=== PATIENT | male | born 1960 | race Caucasian/White ===

== ENCOUNTER 2018-11-11 11:19 | Emergency (ER) | payer MEDICARE, OTHER ==
--- NOTE | 2018-11-11 12:32 | REP ---
Chest one-view HISTORY: Cough Comparison: None Linear densities are present in the left lower lobe consistent with atelectasis or scar. The right lung is clear The heart is normal in size. The pulmonary vasculature is normal in appearance. Impression: Left lower lobe atelectasis or scar. Electronically Signed by Bassam Mckeon MD 11/11/2018 12:24 P
[2018-11-11 12:47] LABS: BASO # 0.1 10^3/uL (0.0-0.2); BASO % 1.1 % (0.0-1.0); EOS # 0.2 10^3/uL (0.0-0.50); EOS % 2.3 % (0.0-3.0); HEMATOCRIT 39.6 % (42.0-52.0); HEMOGLOBIN 13.4 g/dl (13.5-17.5); LYMPH # 1.7 10^3/uL (1.5-4.5); LYMPH % 20.9 % (24.0-44.0); MEAN CORPUSCULAR HEMOGLOBIN 30.9 pg (27.0-33.0); MEAN CORPUSCULAR HGB CONC 33.8 g/dl (32.0-36.5); MEAN CORPUSCULAR VOLUME 91.5 fl (80.0-96.0); MONO # 0.5 10^3/uL (0.0-0.8); MONO % 5.4 % (0.0-5.0); NEUTROPHILS # 5.8 10^3/uL (1.8-7.7); NEUTROPHILS % 69.8 % (36.0-66.0); PLATELET COUNT, AUTOMATED 288 10^3/uL (150-450); RED BLOOD COUNT 4.33 10^6/uL (4.30-6.10); VENOUS BASE EXCESS 0.5 (-2.0-2.0); VENOUS HCO3 25.7 MEQ/L (23.0-27.0); VENOUS O2 SATURATION 91.4 % (60.0-80.0); VENOUS PARTIAL PRESSURE CO2 43.4 mmHg (38.0-50.0); VENOUS PARTIAL PRESSURE O2 62.7 mmHg (30.0-50.0); VENOUS STANDARD HCO3 24.8 MEQ/L; WHITE BLOOD COUNT 8.3 10^3/uL (4.0-10.0)
[2018-11-11 12:58] LABS: INR 0.88
[2018-11-11 13:00] LABS: D-DIMER QUANT 482.72 ng/ml (<500)
[2018-11-11 13:20] LABS: ALBUMIN 3.6 GM/DL (3.2-5.2); ALT/SGPT 19 U/L (12-78); BILIRUBIN,DIRECT < 0.1 MG/DL (0.0-0.2); BILIRUBIN,TOTAL 0.2 MG/DL (0.2-1.0); BLOOD UREA NITROGEN 27 MG/DL (7-18); CALCIUM LEVEL 8.9 MG/DL (8.5-10.1); CARBON DIOXIDE LEVEL 26 MEQ/L (21-32); CHLORIDE LEVEL 107 MEQ/L (98-107); CPK CREATINE PHOSPHOKINASE 170 U/L (39-308); CREATININE FOR GFR 0.78 MG/DL (0.70-1.30); GLOMERULAR FILTRATION RATE > 60.0 (>56); GLUCOSE, FASTING 96 MG/DL (70-100); MB/CK RELATIVE INDEX 3.24 (< OR =4); NT-PRO BNP 37 PG/ML (<125); POTASSIUM SERUM 4.2 MEQ/L (3.5-5.1); SODIUM LEVEL 141 MEQ/L (136-145); TOTAL PROTEIN 6.4 GM/DL (6.4-8.2); TROPONIN I < 0.02 NG/ML (< 0.10)
[2018-11-11] MEDS ORDERED: ALBU17IN2 INH (14:05)
[2018-11-11] MEDS ORDERED: PRED20TA PO (14:05)
[2018-11-11] MEDS ORDERED: IPRATROPIUM 0.5MG/ALBUTEROL 2.5MG INH SOL UD 3ML (DUONEB)(J7620) NEB ONE (14:15)
[2018-11-11] MEDS ORDERED: dexameTHASONE 20 MG/5 ML VIAL (J1100) IV ONE (14:15)
[2018-11-11 14:31] VITALS: BP 124/79
--- NOTE | 2018-11-12 08:51 | ECGEPIP ---
Stationary ECG Study [facility] - ED Test Date: 2018-11-11 Pat Name: LUCERO BILLS Department: Room: - Gender: M Carrier Blower: MARIS : 1960 Requested By: Wilian Kumar Order Number: [id number] Reading MD: Pari Mccall Measurements Intervals [place] Rate: 64 P: 59 TX: 139 QRS: 49 QRSD: 91 T: 56 QT: 413 QTc: 426 Interpretive Statements SINUS RHYTHM NO PRIOR FOR COMPARISON Electronically Signed On 11-12-2018 8:50:34 EST by Pari Mccall
== END 2018-11-11 15:01 | disposition home or self-care (01) ==
LOC: M ED 11:19
DX: J44.1 Chronic obstructive pulmonary disease with (acute) exacerbation (principal); F17.210 Nicotine dependence, cigarettes, uncomplicated
CPT/HCPCS: 71045; 80048; 80076; 82550; 82553; 82803; 83880; 84443; 84484; 85025; 85379; 85610; 87040; 87486; 87581; 87633; 87798; 93005; 93041; 94640; 96374; 99285; J1100

== ENCOUNTER 2020-02-18 19:30 | Emergency (ER) | payer MEDICARE, OTHER ==
[~2020-02-18] VITALS: Ht 162.6 cm; Wt 68.2 kg
[~2020-02-18 19:30] MED LIST: PRED20TA PO; PROV108A INH
[2020-02-18] MEDS ORDERED: traMADol 50 MG TAB PO ONE (20:30)
--- NOTE | 2020-02-18 20:47 | REPVR ---
PROCEDURE INFORMATION: Exam: XR Left Hip with Pelvis when Performed Exam date and time: 02/18/2020 8:07 PM Age: 59 years old Clinical indication: Hip pain; Left hip; Additional info: Left hip pain for 3 weeks, doesn't know of any injury. TECHNIQUE: Imaging protocol: XR Left hip with pelvis when performed. Views: 2 or 3 views. COMPARISON: No relevant prior studies available. FINDINGS: Bones/joints: Advanced osteoarthritic changes of the left hip with severe degenerative joint space narrowing and subchondral sclerosis. Partially visualized chronic healed mid left femoral diaphysis fracture. No acute fracture or dislocation. Soft tissues: Unremarkable. IMPRESSION: 1. No acute fracture or dislocation. 2. Severe osteoarthritic changes of the left hip. Electronically signed by: Sidney Londono On 02/18/2020 20:47:27 PM
--- NOTE | 2020-02-18 20:48 | REPVR ---
PROCEDURE INFORMATION: Exam: XR Left Femur Exam date and time: 02/18/2020 8:40 PM Age: 59 years old Clinical indication: Pain; Hip; Left; Additional info: Left hip/femur pain TECHNIQUE: Imaging protocol: XR Left femur. Views: 2 views. COMPARISON: No relevant prior studies available. FINDINGS: Bones/joints: Chronic healed mid left femoral diaphysis fracture. No acute fracture or dislocation. Osteoarthritic changes of the left knee, predominantly along the medial joint space. Soft tissues: Unremarkable. IMPRESSION: 1. No acute findings. 2. Chronic findings, as above. Electronically signed by: Sidney Londono On 02/18/2020 20:48:27 PM
[2020-02-18 20:59] LABS: BASO # 0.1 10^3/uL (0.0-0.2); BASO % 1.3 % (0.0-1.0); EOS # 0.1 10^3/uL (0.0-0.5); HEMATOCRIT 44.2 % (42.0-52.0); LYMPH # 1.8 10^3/uL (1.5-5.0); LYMPH % 26.2 % (24.0-44.0); MEAN CORPUSCULAR HEMOGLOBIN 30.4 pg (27.0-33.0); MEAN CORPUSCULAR HGB CONC 33.9 g/dl (32.0-36.5); MEAN CORPUSCULAR VOLUME 89.5 fl (80.0-96.0); MONO # 0.5 10^3/uL (0.0-0.8); MONO % 7.3 % (0.0-5.0); NEUTROPHILS # 4.4 10^3/uL (1.5-8.5); NEUTROPHILS % 63.8 % (36.0-66.0); PLATELET COUNT, AUTOMATED 274 10^3/uL (150-450); RED BLOOD COUNT 4.94 10^6/uL (4.30-6.10)
[2020-02-18 21:26] LABS: ALBUMIN 3.6 GM/DL (3.2-5.2); ALT/SGPT 18 U/L (12-78); BILIRUBIN,TOTAL 0.5 MG/DL (0.2-1.0); BLOOD UREA NITROGEN 22 MG/DL (7-18); CALCIUM LEVEL 8.9 MG/DL (8.8-10.2); CARBON DIOXIDE LEVEL 28 MEQ/L (21-32); CHLORIDE LEVEL 103 MEQ/L (98-107); CREATININE FOR GFR 0.98 MG/DL (0.70-1.30); GLOMERULAR FILTRATION RATE > 60.0 (>49); GLUCOSE, FASTING 72 MG/DL (70-100); POTASSIUM SERUM 3.9 MEQ/L (3.5-5.1); SODIUM LEVEL 138 MEQ/L (136-145); TOTAL PROTEIN 6.9 GM/DL (6.4-8.2)
[2020-02-18 21:35] VITALS: BP 146/78
[2020-02-18] MEDS ORDERED: TRAM50TA2 PO (21:38)
[2020-02-18] MEDS ORDERED: CLOT1CRE56 TOP (21:38)
== END 2020-02-18 22:15 | disposition home or self-care (01) ==
LOC: M ED 19:30
DX: M16.12 Unilateral primary osteoarthritis, left hip (principal); B35.4 Tinea corporis; Z87.81 Personal history of (healed) traumatic fracture; J44.9 Chronic obstructive pulmonary disease, unspecified; R21 Rash and other nonspecific skin eruption

== ENCOUNTER → 2021-04-17 | Outpatient (CLI) | payer OTHER ==
[~2021-04-17] MED LIST changes: +CLOT1CRE56 TOP; +ISOVUE-300 61% 50ML VIAL As Ordered ONE; +LIDOCAINE 1% MDV 20ML VIAL As Ordered ONE; +TRAM50TA2 PO; +TRIAMCINOLONE ACETONIDE SUSP 40 MG/ML VIAL (J3301) As Ordered ONE
--- NOTE | 2021-04-17 12:50 | REP ---
INDICATION: OSTEOARTHRITIS LEFT HIP. COMPARISON: None TECHNIQUE: The procedure was performed by ARIEL Tong, under the direct supervision of Dr. Huff. The benefits and risks of the procedure were explained to the patient, and an informed consent was obtained. Directly prior to the start of the procedure, a formal time-out was completed in the procedure room. The left femoral neck joint space was localized using fluoroscopic guidance. The skin was prepped and draped in a sterile fashion. Approximately 5 mL of 1% Lidocaine 10 mg/ml was used as a local anesthetic. Using fluoroscopic guidance, a #22 gauge spinal needle was inserted and advanced into the left joint space, given the patient's inability to lay flat and extend his leg flat this proved to be rather difficult. Approximately 1 mL of Isovue 300 was injected to verify placement. Six mL of a solution containing 5 mL 1% lidocaine 10 mg/ml and 1 mL Kenalog 40 milligrams/milliliter was injected into the joint space. The needle was removed and hemostasis was achieved. FINDINGS: The patient tolerated the procedure well and there were no immediate complications. IMPRESSION: 1. Fluoroscopic guided left hip intra-articular pain injection. 0.4 minutes of fluoroscopy time was utilized for this procedure. Some fluoroscopic images are performed with last image hold technology. These images require no additional radiation. <Electronically signed by Nataly Wong > 04/17/21 1241 <Electronically signed by Landon Huff > 04/17/21 1244
== END ==
LOC: M RADPRO 11:09
PROVIDERS: ATTEND Orthopaedic Surgery
DX: M16.12 Unilateral primary osteoarthritis, left hip (principal)
CPT/HCPCS: 20610; 77002; J3301; Q9967

== ENCOUNTER → 2021-05-16 | Outpatient (CLI) | payer OTHER ==
[~2021-05-16] MED LIST changes: -ISOVUE-300 61% 50ML VIAL As Ordered ONE; -LIDOCAINE 1% MDV 20ML VIAL As Ordered ONE; -TRIAMCINOLONE ACETONIDE SUSP 40 MG/ML VIAL (J3301) As Ordered ONE
--- NOTE | 2021-05-16 20:38 | REPVR ---
PROCEDURE INFORMATION: Exam: MR Lumbar Spine Without Contrast Exam date and time: 05/16/2021 7:44 PM Age: 60 years old Clinical indication: Low back pain TECHNIQUE: Imaging protocol: Multiplanar magnetic resonance images of the lumbar spine without intravenous contrast. COMPARISON: CR Hip, Ap,Lat 02/18/2020 7:54 PM FINDINGS: Vertebrae: 6 mm of grade 1 degenerative anterolisthesis of L4 on L5. Slight degenerative retrolisthesis of L5 on S1. No acute fracture seen. Spinal cord: The conus medullaris ends normally. Disc desiccation at L1-L2 and from L3-L4 through L5-S1. Moderate disc height loss and spondylosis at L5-S1. Endplate inflammation is likely degenerative. L1-L2: Mild disc bulge and facet arthropathy. High-intensity zone in posterior disc margin. No stenoses. L2-L3: Mild facet arthropathy. No stenoses. L3-L4: Mild disc bulge as well as moderate facet arthropathy with facet joint effusions. No significant central spinal canal stenosis. Mild bilateral neural foraminal stenoses. L4-L5: Anterolisthesis with pseudo bulging of the intervertebral disc. Severe facet arthropathy and ligamentum flavum buckling. Central spinal canal stenosis is mild, more a transverse thecal sac narrowing. The lateral recesses are narrowed near the L5 nerve roots. Moderate left and [id number] right neural foraminal stenoses. L5-S1: Retrolisthesis, diffuse disc osteophyte complex and facet arthropathy. No significant central spinal canal stenosis. Severe bilateral neural foraminal stenoses. Marrow: There are STIR hyperintense, T1 hypointense lesions in the bone marrow which are nonspecific. These are relatively punctate in the T12 and L1 vertebral bodies, lesion measures approximately 9 mm in posterior L3, image 5 series 401. Atypical hemangiomas are possible. Soft tissues: Unremarkable. IMPRESSION: 1. Images are motion degraded. 2. A few indeterminate lesions in the bone marrow. Please correlate with patient risk factors for metastatic disease. Postcontrast sequences of the lumbar spine could be obtained for further evaluation, as needed. 3. Moderate degenerative disc disease at L5-S1 with endplate inflammation. 4. Grade 1 degenerative anterolisthesis of L4 on L5. 5. Lateral recess stenoses at L4-L5 may be cause of L5 distribution radiculopathy. 6. Neural foraminal stenoses at L5-S1 may be additional cause of L5 distribution radiculopathy. Electronically signed by: Kalyn Tyson On 05/16/2021 20:37:51 PM
== END ==
LOC: M RAD 17:39
PROVIDERS: ATTEND Orthopaedic Surgery
DX: M51.37 Other intervertebral disc degeneration, lumbosacral region (principal); M48.061 Spinal stenosis, lumbar region without neurogenic claudication; M48.07 Spinal stenosis, lumbosacral region